=== PATIENT | female | born 1980 | race Caucasian/White ===

== ENCOUNTER 2023-11-04 08:31 | Emergency (ER) | payer OTHER, SELFPAY ==
[2023-11-04 08:33] VITALS: BP 132/94
[2023-11-04 09:30] LABS: % Basophils 0.8 % (0-2); % Eosinophils 1.3 % (0-6); % Immature Granulocytes 0.4 % (0-0.5); % Lymphocytes 28.1 % (20.5-51.1); % Monocytes 8.1 % (1.7-9.3); % Neutrophils 61.3 % (42.2-75.2); Absolute Basophils 0.1 10^3/uL (0-0.2); Absolute Eosinophils 0.1 10^3/uL (0-0.7); Absolute Lymphocytes 2.2 10^3/uL (1.2-3.4); Absolute Monocytes 0.6 10^3/uL (0.1-0.6); Absolute Neutrophils 4.8 10^3/uL (1.4-6.5); Hematocrit 35.7 % (37.0-47.0); Hemoglobin 12.1 g/dL (12.0-16.0); Mean Corp Hgb Conc. 33.9 g/dL (33.0-37.0); Mean Corpuscular Hgb 27.5 pg (27.0-31.0); Mean Corpuscular Volume 81.1 fL (81.0-99.0); Mean Platelet Volume 10.9 fL (7.4-10.4); Nucleated Red Blood Cells % 0 %; Platelet Count 274 10^3/uL (130-400); Red Cell Dist. Width 13.9 % (11.5-14.5); White Blood Cell Count 7.9 10^3/uL (4.8-10.8)
[2023-11-04 09:44] LABS: HCG, Serum Qualitative Screen Negative
[2023-11-04 09:47] LABS: Blood Urea Nitrogen 10 mg/dl (7-17); Calcium 9.1 mg/dl (8.4-10.2); Carbon Dioxide 28 mmol/L (22-30); Chloride 106 mmol/L (98-107); Glucose 83 mg/dl (70-99); Potassium 3.8 mmol/L (3.5-5.1); Sodium 137 mmol/L (135-145); eGFR > 60.00
--- NOTE | 2023-11-04 09:51 | ED.GENMED ---
History of Present Illness
General
Chief Complaint: Vaginal Bleeding
Source: patient
Exam Limitations: none
Time Seen by Provider: 11/04/23 09:03
Nursing documentation reviewed up to this point in time: agreed with
Travel History
Have you had any contact with someone who has COVID-19?: No
Do you have any symptoms of coronavirus? Fever > 100 degrees, chills, cough, shortness of breath, sore throat, loss of taste or smell, muscle aches, or headache?: No
History of Present Illness
History of Present Illness:
43-year-old female without significant past medical history presenting to the emergency department today with concerns of vaginal bleeding over the past 12 days. Initially the bleeding seem to be somewhat consistent with normal periods but now has
been going through a pad multiple times per hour over the past 24 hours. Does not have an active bid writer considering her previous bid writer is no longer practicing in the local area. Has had some intermittent cramping but denies any
ongoing pain. Denies any lightheadedness chest pain shortness of breath or additional concerns otherwise. Has had intermittent clotting.
Past History
Past History
ED Past Medical History: None
ED Past Surgical History: None
Social History
Tobacco: Non-smoker
Alcohol: Occasional
Personal:
Living: with family
Employment: Employed
Review of Systems
Review of Systems
Allergies reviewed?: Yes
All Other Systems: ROS reviewed and negative except as documented in HPI and ROS
Phy Exam
Physical Exam
Physical Exam:
GENERAL: Alert , in no apparent distress
EYE: pupils equal and reactive
NECK: Supple, no significant adenopathy.
ENT: o/p clr, mmm.
CARDIAC: Regular rate and rhythm .
LUNGS: Clear breath sounds bilaterally, no acute respiratory distress, no wheezes/rales/rhonchi
ABDOMEN: Soft, without focal tenderness, no r/g, no cvat
Vaginal; small mount of red blood in the vaginal vault no obvious active bleeding or hemorrhage normal-appearing cervix
NEUROLOGICAL: Alert and oriented, no focal neuro deficits
SKIN: Warm and dry, skin intact.
MUSCULOSKELETAL: No edema, well perfused.
PSYCH: Normal and appropriate interaction.
Course
Orders/Labs/Results
Orders:
Orders
11/04/23 09:03
Test Result ONCE
11/04/23 09:19
BMP [Basic Metabolic Panel] Urgent
Beta Hcg Serum Qualitative Screen [HCG, Serum Qualitative Screen] Urgent
CBC/With Diff [Complete Blood Count/With Diff] Urgent
11/04/23 09:21
US Pelvis W Transvag Combined Urgent
Reason For Exam: vaginal bleeding pain
Abnormal Lab Results
11/04/23
09:19
Hct 35.7 L %
(37.0-47.0)
MPV 10.9 H fL
(7.4-10.4)
11/04/23 09:19
11/04/23 09:19
Vital Signs
Initial and Last Documented VS:
Initial Vital Signs
Temp Pulse Resp BP Pulse Ox
98.2 F 81 16 132/94 99
11/04/23 08:33 11/04/23 08:33 11/04/23 08:33 11/04/23 08:33 11/04/23 08:33
Last Documented Vital Signs
Temp Pulse Resp BP Pulse Ox
98.2 F 70 15 108/71 99
11/04/23 08:33 11/04/23 10:54 11/04/23 10:54 11/04/23 10:54 11/04/23 08:33
MDM/Problems Addressed
MDM/Problems Addressed:
43-year-old female presenting to the emergency department today with concerns of 12 days of ongoing vaginal bleeding which is much more than usual with her periods which have been very regular historicly. Patient generally well-appearing no obvious
distress here no hemorrhage on examination does have some blood in the vault. No specific abnormalities on pelvic examination. No specific pain. Ultrasound did show a polyp measuring roughly 3.9 cm though differential does include hyperplasia or
carcinoma. Case was discussed with on-call bid writer who will see the patient in the office tomorrow otherwise stable with normal hemoglobin stable for outpatient management.
*Critical Care Note
Total Time (30-74mins, 75-104mins- exclusive of procedures): Not Applicable
ED Attending Note
-
Portions of this chart may have been created with voice recognition software.� Occasional wrong word or��sound alike� substitutions may have occurred due to the inherent limitations of voice recognition software.
Discharge Plan
Departure
Patient Disposition: Home (Routine Discharge)
Date of Disposition: 11/04/23
Time of Disposition: 11:22
Patient with high blood pressure during this ER visit?: No
Condition: Good
Covid-19: Not Applicable
Discharge Problem:
Abnormal vaginal bleeding
Instructions: Heavy Periods (DC)
Prescriptions:
No Action
No Current Medications
0
Referrals:
Nadia Iqbal PA-C [Family Provider] -
Smitha Pearl MD [Active] - Tomorrow
Activity Restrictions/Additional Instructions:
You came to the emergency department today with concerns of dysfunctional vaginal bleeding. Here an ultrasound that showed potential polyp is not fully differentiated with this imaging. You will need close follow-up and follow-up with your
supervisory cbp officer tomorrow. Return to the emergency department for any worsening, new or concerning symptoms.
Interventions
Interventions:
*Risk Screen - Suicide Last Done: 11/04/23 09:40
*General Assessment Last Done: 11/04/23 09:35
*Neglect/Abuse Screening Last Done: 11/04/23 09:40
*ED COVID-19 Vaccine History Last Done: 11/04/23 08:33
*Nursing Disposition Last Done: 11/04/23 11:39
ED-Female Genitourinary Assessment Last Done: 11/04/23 09:21
Discharge Date and Time
Discharge Date/Time: 11/04/23 11:40
[2023-11-04 10:10] VITALS: BP 117/61
[2023-11-04 10:54] VITALS: BP 108/71
== END 2023-11-04 11:40 | disposition home or self-care (01) ==
LOC: EMR 08:31
PROVIDERS: Physician Assistant; EMERGENCY PHYSICIAN Emergency Medicine; FAMILY PHYSICIAN Physician Assistant Medical
DX: N93.9 Abnormal uterine and vaginal bleeding, unspecified (principal)
CPT/HCPCS: 99284; 76830; 76856; 80048; 84703; 85025

== ENCOUNTER → 2023-11-26 11:15 | Outpatient (REF) | payer OTHER, SELFPAY | LOC: CLAB 11:15 | PROVIDERS: ATTENDING PHYSICIAN Obstetrics & Gynecology Gynecology | DX: N93.9 Abnormal uterine and vaginal bleeding, unspecified (principal); N84.0 Polyp of corpus uteri | CPT/HCPCS: 88305 ==

== ENCOUNTER → 2024-06-09 13:31 | Outpatient (REF) | payer OTHER, SELFPAY | LOC: HWWDC 13:31 | PROVIDERS: ATTENDING PHYSICIAN Obstetrics & Gynecology Gynecology; FAMILY PHYSICIAN Physician Assistant Medical | DX: Z12.31 Encounter for screening mammogram for malignant neoplasm of breast (principal) | CPT/HCPCS: 77063; 77067 ==

== ENCOUNTER → 2024-07-31 13:06 | Outpatient (REF) | payer OTHER, SELFPAY | LOC: WDC 13:06 | PROVIDERS: ATTENDING PHYSICIAN Obstetrics & Gynecology Gynecology; FAMILY PHYSICIAN Physician Assistant Medical | DX: R92.2 Inconclusive mammogram (principal) | CPT/HCPCS: 76641 ==

== ENCOUNTER → 2024-12-28 10:55 | Outpatient (REF) | payer OTHER, SELFPAY | LOC: RAD 10:55 | PROVIDERS: ATTENDING PHYSICIAN Obstetrics & Gynecology Gynecology; FAMILY PHYSICIAN Physician Assistant Medical | DX: N93.9 Abnormal uterine and vaginal bleeding, unspecified (principal) | CPT/HCPCS: 76830; 76856 ==